=== PATIENT | female | born 1995 | race Caucasian/White ===

== ENCOUNTER 2017-08-05 19:20 | Emergency (ER) | payer SELFPAY ==
[2017-08-05] MEDS ORDERED: Acetaminophen 500 MG TAB ONE (19:38)
[2017-08-05] MEDS ORDERED: Dexamethasone 10 MG/ML VIAL ONE (19:38)
[2017-08-05] MEDS ORDERED: Bicillin LA 1.2 MILLION UNITS/2 ML SYRINGE ONE (20:13)
== END 2017-08-05 20:39 | disposition home or self-care (01) ==
LOC: ERS 19:20
DX: J02.0 Streptococcal pharyngitis (principal); I10 Essential (primary) hypertension; Z87.891 Personal history of nicotine dependence
CPT/HCPCS: 87430; 96372; J0561; J1100